=== PATIENT | female | born 1945 | race Asian ===

== ENCOUNTER → 2019-01-02 | Outpatient (CLI) | payer MEDICARE, MEDICAID | LOC: MC.RAD 09:49 | DX: Z12.31 Encounter for screening mammogram for malignant neoplasm of breast (principal); N63.11 Unspecified lump in the right breast, upper outer quadrant ==

== ENCOUNTER → 2019-01-24 | Outpatient (CLI) | payer MEDICARE, MEDICAID | LOC: MC.RAD 01-23 10:00 | DX: N63.11 Unspecified lump in the right breast, upper outer quadrant (principal) ==